=== PATIENT | male | born 1980 | race Caucasian/White ===

== ENCOUNTER 2025-03-19 11:15 | Outpatient (CLI) | payer OTHER, SELFPAY ==
[2025-03-19 18:09] LABS: Alanine Aminotransferase 21 U/L (12-78); Albumin Level 4.3 g/dl (3.5-5.0); Albumin/Globulin Ratio 1.3 (1.1-1.8); Alkaline Phosphatase 141 U/L (38-126); Anion Gap 15.9 mEq/L (5-15); Aspartate Amino Transferase 24 U/L (17-59); Bilirubin,Total 0.7 mg/dl (0.2-1.3); Blood Urea Nitrogen 17 mg/dl (9-20); Calcium 9.3 mg/dl (8.4-10.2); Carbon Dioxide 26 mmol/L (22.0-30.0); Chloride 100 mmol/L (98-107); Cholesterol 265 mg/dl (140-200); Creatinine,Serum 0.90 mg/dl (0.66-1.25); Estimated Glomerular Filt Rate 91 ml/min (>60); GFR (African American) 110 ML/MIN (>60); Globulin 3.2 g/dL (1.3-3.2); Glucose 70 mg/dl (74-100); HDL Cholesterol 49 mg/dl (40-60); Potassium 4.9 mmoL/L (3.5-5.1); Sodium 137 mmol/L (136-145); Total Protein,Serum 7.5 g/dl (6.3-8.2); Triglycerides 307 mg/dl (30-150)
[2025-03-19 18:28] LABS: Hemoglobin A1C 6.0 % (4.0-6.0)
[2025-03-19 18:55] LABS: Hepatitis C Ab Qual. W/ RFX NEGATIVE (Negative)
[2025-03-21 09:41] LABS: Hepatitis B Surface Antigen Negative (Negative)
== END 2025-03-19 23:59 ==
LOC: LAB.DROPOF 03-21 00:17
PROVIDERS: PCP Family Medicine; Visit Provider Family Medicine
DX: E78.5 Hyperlipidemia, unspecified (principal); Z79.899 Other long term (current) drug therapy; I10 Essential (primary) hypertension; Z11.59 Encounter for screening for other viral diseases
CPT/HCPCS: 80053; 80061; 83036; 86803; 87340; 87389